=== PATIENT | female | born 1995 | race Caucasian/White ===

== ENCOUNTER 2018-03-21 06:12 | Day surgery (SDC) | payer OTHER ==
[2018-03-21] MEDS: CEFAZOLIN 2 GM/50 ML (PMX) 50 ML IVPB (11:00)
[2018-03-21] MEDS: SOD CHLORIDE 0.9% 1,000 ML IV (11:20)
[2018-03-21] MEDS ORDERED: FENTAnyl 50 MCG/ML VIAL (12:28)
[2018-03-21] MEDS ORDERED: PROPOFOL 20 ML (12:28)
[2018-03-21] MEDS ORDERED: CEFAZOLIN 1 GM INJ (12:28)
[2018-03-21] MEDS ORDERED: MIDAZOLAM 1 MG/ML 2 ML INJ (12:41)
[2018-03-21] MEDS ORDERED: ONDANSETRON 4 MG INJ IV (13:00)
[2018-03-21] MEDS ORDERED: LABETALOL HCL 20MG INJ IV (13:00)
[2018-03-21] MEDS ORDERED: OXYCODONE/ACETAMINOPHEN (5/325) TAB PO (13:00)
[2018-03-21] MEDS ORDERED: HYDROmorphONE 1 MG/5 ML IV SYRINGE IV (13:00)
[2018-03-21] MEDS ORDERED: FENTAnyl 50 MCG/ML VIAL IV ×3 (13:00)
[2018-03-21] MEDS ORDERED: MEPERIDINE 25 MG INJ IV (13:00)
[2018-03-21] MEDS ORDERED: DIPHENHYDRAMINE 50 MG INJ IV (13:00)
[2018-03-21] MEDS ORDERED: EPHEDrine SULFATE 50 MG/5 ML SYG IV (13:00)
[2018-03-21] MEDS: BUPIVACAINE 0.25% (MPF) 30 ML INJ (13:22)
[2018-03-21] MEDS ORDERED: METOCLOPRAMIDE 10 MG INJ (13:32)
[2018-03-21] MEDS ORDERED: DEXAMETHASONE 4 MG/ML 1 ML INJ (13:32)
[2018-03-21] MEDS ORDERED: ONDANSETRON 4 MG INJ (13:32)
[2018-03-21] MEDS ORDERED: KETOROLAC 30 MG INJ (13:32)
[2018-03-21] MEDS ORDERED: HYDROCODONE/APAP (5/325) TAB PO (14:00)
[2018-03-21] MEDS: HYDROmorphONE 1 MG/5 ML IV SYRINGE IV (14:34)
[2018-03-21] MEDS: METOCLOPRAMIDE 10 MG INJ IV (14:34)
== END 2018-03-21 15:50 | disposition home or self-care (01) ==
LOC: SDS 06:12
DX: D24.2 Benign neoplasm of left breast (principal)
CPT/HCPCS: 14001; 84703; 88307